=== PATIENT | male | born 1960 | race Caucasian/White ===

== ENCOUNTER 2020-07-27 06:10 | Observation (INO) | payer OTHER ==
[2020-07-24 10:56] LABS: BASOPHILS # (AUTO) 0.1 X10'3 (0-0.2); EOSINOPHILS % (AUTO) 0.5 % (0-6); HEMATOCRIT 45.3 % (42.0-52.0); HEMOGLOBIN 15.3 g/dl (14.0-17.9); LYMPHOCYTES # (AUTO) 1.8 X10'3 (1.1-4.8); LYMPHOCYTES % (AUTO) 25.7 % (21-51); MEAN CORPUSCULAR HEMOGLOBIN 28.3 PG (27.0-31.0); MEAN CORPUSCULAR HGB CONC 33.7 g/dL (33.0-36.5); MEAN CORPUSCULAR VOLUME 83.9 FL (78-98); MEAN PLATELET VOLUME 7.6 FL (7.4-10.4); MONOCYTES # (AUTO) 0.5 X10'3 (0-0.9); MONOCYTES % (AUTO) 7.3 % (2-12); NEUTROPHILS # (AUTO) 4.6 X10'3 (1.8-7.7); NEUTROPHILS % (AUTO) 65.5 % (42-75); PLATELET COUNT 234 X10'3 (140-440); RED CELL DISTRIBUTION WIDTH 13.3 % (11.5-14.5)
[2020-07-24 11:14] LABS: PARTIAL THROMBOPLASTIN TIME 26 SECONDS (22-32)
[2020-07-24 11:17] LABS: ALBUMIN 4.1 G/DL (3.4-5.0); ANION GAP 7 (8-16); BLOOD UREA NITROGEN 13 MG/DL (7-18); BUN/CREATININE RATIO 14.1 (5.4-32.0); CALCIUM 8.8 MG/DL (8.5-10.1); CHLORIDE 106 MMOL/L (99-107); CREATININE 0.92 MG/DL (0.60-1.10); GLUCOSE 116 MG/DL (70-104); POTASSIUM 3.8 MMOL/L (3.5-5.1); SODIUM 143 MMOL/L (135-145); TOTAL CARBON DIOXIDE 29.6 MMOL/L (24-32); eGFR 84 ML/MIN
[2020-07-27] VITALS (12 sets, daily range): BP systolic 118–191; BP diastolic 63–105
[~2020-07-27] VITALS: Ht 172.7 cm; Wt 96.5 kg
--- NOTE | 2020-07-27 06:15 | NUR ---
Patient arrived to unit.
[2020-07-27] MEDS ORDERED: diphenhydrAMINE 25mg capsule PO PRN (06:30)
[2020-07-27] MEDS ORDERED: LIDOcaine/PRILOcaine 5gm cream TP ONE (06:30)
[2020-07-27] MEDS ORDERED: LORazepam 0.5 MG tablet PO PRN (06:30)
[2020-07-27] MEDS ORDERED: ASPI-920 PO (06:50)
[2020-07-27] MEDS ORDERED: CLOP75TA15 PO (06:50)
[2020-07-27] MEDS ORDERED: ROSU10TA2 PO (06:50)
[2020-07-27] MEDS ORDERED: METO25TA6 PO (06:50)
[2020-07-27] MEDS ORDERED: verapamil 2.5 mg/ml inj IV ONE (07:11)
[2020-07-27] MEDS ORDERED: midazolam 2 mg/2 ml injection ONE (07:11)
[2020-07-27] MEDS ORDERED: fentaNYL/PF 50MCG/1 ML 2ML syringe ONE (07:11)
[2020-07-27] MEDS ORDERED: LIDOcaine 1% (10mg/ml)w/preservative injection 20ml MDV ONE (07:12)
[2020-07-27] MEDS ORDERED: iohexol 350 MG/ML 50ML vial IV ONE (07:12)
[2020-07-27] MEDS ORDERED: iohexol 350MG/ML 100ml bottle IV ONE ×3 (07:12→08:43)
[2020-07-27] MEDS ORDERED: nitroGLYCERIN-Tridil 50MG/D5W 250 ML IV ONE (07:12)
[2020-07-27] MEDS ORDERED: heparin 1,000 UNITS/NS 500ml 500 ML ONE ×3 (07:12→08:28)
[2020-07-27] MEDS ORDERED: heparin 1,000unit/ml 10ml vial 10 ML ONE (07:12)
[2020-07-27] MEDS: normal saline 1,000 ML IV SCH ×3 (07:23→23:05)
--- NOTE | 2020-07-27 07:30 | NUR ---
Pt prepped for heart cath, right radial and groin. Pre-medication given as ordered. Vic CABRAL from clinical laboratory aides teacher in to take patient at this time.
[2020-07-27] MEDS ORDERED: heparin 25,000 UNIT/250ml bag 250 ML IV ONE (08:06)
[2020-07-27] MEDS ORDERED: clopidogrel 300mg tablet ONE ×2 (08:57→08:58)
[2020-07-27] MEDS ORDERED: clopidogrel 75mg tablet ONE ×2 (09:01→09:03)
[2020-07-27] MEDS ORDERED: acetaminophen 325mg tablet PO PRN (09:45)
[2020-07-27] MEDS ORDERED: HYDROcodone/acetaminophen 10/325mg tab PO PRN (09:45)
[2020-07-27] MEDS ORDERED: HYDROcodone/acetaminophen 5mg/325mg tablet PO PRN (09:45)
[2020-07-27] MEDS ORDERED: hydrALAZINE 20mg/ml inj. IV ONE (09:50)
[2020-07-27] MEDS ORDERED: hydrALAZINE 20mg/ml inj. IV PRN (09:50)
--- NOTE | 2020-07-27 11:40 | NUR ---
Called Dr. Walker regarding Lisinopril. Orders to give a dose now and start in the morning.
[2020-07-27] MEDS ORDERED: lisinopril 10 MG tablet PO ONE (11:50)
--- NOTE | 2020-07-27 12:23 | NUR ---
Patient in short stay . I have received report from MISHA Amor and had the opportunity to ask questions and awaiting pt's arrival to PCU floor. .
--- NOTE | 2020-07-27 12:42 | NUR ---
Patient arrived from short stay. Ambulated self to bed with standby assistance. Alert and oriented to room. BLL, SRx2, CL within reach, non skid socks on. 2 RN skin check complete. MRSA swab collected and sent to lab. First set of vitals BP 146/79, HR 65, R 16, Temp 98.0 oral, 98 room air, pain 0/10.
--- NOTE | 2020-07-27 12:50 | NUR ---
Report given to Renée CABRAL on tele. Patient taken up to room 7336M. All belongings with patient up to the room. Patient's home medications taken to pharmacy.
--- NOTE | 2020-07-27 18:19 | NUR ---
Problems reprioritized. Patient report given, questions answered & plan of care reviewed with MISHA Rich. Pt sitting up in bed, resting comfortably at change of shift. All pt needs met at this time.
[2020-07-27] MEDS: metoprolol tartrate 25mg tablet PO SCH (20:31)
[2020-07-27] MEDS ORDERED: temazepam 15mg capsule PO PRN ×2 (22:40→22:45)
[2020-07-28] VITALS (9 sets, daily range): BP systolic 125–166; BP diastolic 58–99
[2020-07-28] MEDS ORDERED: nitroGLYCERIN-Tridil 50MG/D5W 250 ML IV ONE (05:58)
[2020-07-28] MEDS ORDERED: heparin 25,000 UNIT/250ml bag 250 ML IV ONE (05:58)
[2020-07-28] MEDS ORDERED: midazolam 2 mg/2 ml injection ONE (05:59)
[2020-07-28] MEDS ORDERED: iohexol 350MG/ML 100ml bottle IV ONE ×2 (05:59→07:10)
[2020-07-28] MEDS ORDERED: verapamil 2.5 mg/ml inj IV ONE (05:59)
[2020-07-28] MEDS ORDERED: LIDOcaine 1% (10mg/ml)w/preservative injection 20ml MDV ONE (05:59)
[2020-07-28] MEDS ORDERED: fentaNYL/PF 50MCG/1 ML 2ML syringe ONE (05:59)
[2020-07-28] MEDS ORDERED: heparin 1,000unit/ml 10ml vial 10 ML ONE (05:59)
[2020-07-28] MEDS ORDERED: LIDOcaine/PRILOcaine 5gm cream TP ONE (06:00)
--- NOTE | 2020-07-28 06:28 | NUR ---
Patient in room PCU 3015. I have received report from Layla CABRAL and had the opportunity to ask questions and assume patient care.
[2020-07-28] MEDS: normal saline 1,000 ML IV SCH (06:51)
[2020-07-28 07:23] LABS: BASOPHILS # (AUTO) 0.1 X10'3 (0-0.2); BASOPHILS % (AUTO) 0.7 % (0-1); EOSINOPHILS # (AUTO) 0.1 X10'3 (0-0.9); EOSINOPHILS % (AUTO) 0.7 % (0-6); HEMATOCRIT 42.9 % (42.0-52.0); HEMOGLOBIN 14.1 g/dl (14.0-17.9); LYMPHOCYTES # (AUTO) 1.7 X10'3 (1.1-4.8); LYMPHOCYTES % (AUTO) 21.3 % (21-51); MEAN CORPUSCULAR VOLUME 84.8 FL (78-98); MONOCYTES # (AUTO) 0.6 X10'3 (0-0.9); MONOCYTES % (AUTO) 7.7 % (2-12); NEUTROPHILS # (AUTO) 5.4 X10'3 (1.8-7.7); NEUTROPHILS % (AUTO) 69.6 % (42-75); PLATELET COUNT 215 X10'3 (140-440); RED BLOOD COUNT 5.05 X10'6 (4.70-6.10); RED CELL DISTRIBUTION WIDTH 13.7 % (11.5-14.5); WHITE BLOOD COUNT 7.8 X10'3 (4.5-11.0)
[2020-07-28 07:49] LABS: ALBUMIN 3.6 G/DL (3.4-5.0); ANION GAP 9 (8-16); BLOOD UREA NITROGEN 11 MG/DL (7-18); BUN/CREATININE RATIO 14.5 (5.4-32.0); CALCIUM 8.4 MG/DL (8.5-10.1); CHLORIDE 106 MMOL/L (99-107); CHOL/HDL RATIO 2.7 (0.00-4.99); CHOLESTEROL 112 MG/DL (0-200); CREATININE 0.76 MG/DL (0.60-1.10); GLUCOSE 99 MG/DL (70-104); HDL CHOLESTEROL 41 MG/DL (35-60); LDL CHOLESTEROL 56 MG/DL (50-100); POTASSIUM 3.5 MMOL/L (3.5-5.1); SODIUM 143 MMOL/L (135-145); TOTAL CARBON DIOXIDE 27.8 MMOL/L (24-32); TRIGLYCERIDES 152 MG/DL (20-135); eGFR > 90 ML/MIN
[2020-07-28] MEDS ORDERED: clopidogrel 300mg tablet ONE (07:50)
[2020-07-28] MEDS ORDERED: aspirin 81mg tablet.DR PO SCH (08:00)
[2020-07-28] MEDS ORDERED: atorvastatin 20mg tablet PO SCH (08:00)
[2020-07-28] MEDS ORDERED: lisinopril 10 MG tablet PO SCH (08:00)
[2020-07-28] MEDS: metoprolol tartrate 25mg tablet PO SCH (08:00)
[2020-07-28] MEDS ORDERED: clopidogrel 75mg tablet PO SCH ×2 (08:00)
[2020-07-28] MEDS ORDERED: pneumococcal 23-VAL P-sac vacc 25 mcg/0.5ml vial IMVAC ONE (10:00)
[2020-07-28] MEDS ORDERED: ROSU40TA PO (12:58)
[2020-07-28] MEDS ORDERED: CLOP75TA15 PO (12:58)
--- NOTE | 2020-07-28 14:42 | NUR ---
Patient discharged at [facility] home. RX faxed to [facility], packet reviewed prior to signing. All belongings sent home with patient including stent cares and heart cath after care. PIV removed, tele taken off, patient wheeled down by staff and left with via private vehicle.
== END 2020-07-28 14:30 | disposition home or self-care (01) ==
LOC: SSTAY O 06:10 → PCU 3S 13:00
PROVIDERS: ADMIT Internal Medicine Cardiovascular Disease; ATTEND Internal Medicine Cardiovascular Disease
DX: I25.119 Atherosclerotic heart disease of native coronary artery with unspecified angina pectoris (principal); I10 Essential (primary) hypertension; E78.5 Hyperlipidemia, unspecified; G47.33 Obstructive sleep apnea (adult) (pediatric); R73.03 Prediabetes; E66.3 Overweight; N40.0 Benign prostatic hyperplasia without lower urinary tract symptoms; F32.9 Major depressive disorder, single episode, unspecified; Z95.5 Presence of coronary angioplasty implant and graft; Z79.82 Long term (current) use of aspirin; Z79.02 Long term (current) use of antithrombotics/antiplatelets; Z79.899 Other long term (current) drug therapy
CPT/HCPCS: 36415; 76937; 80048; 80061; 85025; 85347; 85610; 85730; 93005; 93458; 96360; 96361; C1725; C1751; C1769; C1874; C1892; C1894; C9600; C9601; G0378; J1644; J2001; J2250; J3010; J7030; Q0163; Q9967; 99152; 99153; A4620; A5120; A6258; J3490

== ENCOUNTER 2023-10-02 07:36 | Day surgery (SDC) | payer OTHER ==
[2023-09-25 14:43] LABS: BASOPHILS # (AUTO) 0.1 X10'3 (0-0.2); BASOPHILS % (AUTO) 0.9 % (0-1); EOSINOPHILS % (AUTO) 0.5 % (0-6); LYMPHOCYTES # (AUTO) 1.7 X10'3 (1.1-4.8); LYMPHOCYTES % (AUTO) 21.5 % (21-51); MEAN CORPUSCULAR HEMOGLOBIN 28.6 PG (27.0-31.0); MEAN CORPUSCULAR HGB CONC 33.4 g/dL (33.0-36.5); MEAN CORPUSCULAR VOLUME 85.8 FL (78-98); MEAN PLATELET VOLUME 7.2 FL (7.4-10.4); MONOCYTES # (AUTO) 0.7 X10'3 (0-0.9); MONOCYTES % (AUTO) 8.9 % (2-12); NEUTROPHILS # (AUTO) 5.2 X10'3 (1.8-7.7); NEUTROPHILS % (AUTO) 68.2 % (42-75); PRE OP HEMATOCRIT 43.6 % (42.0-52.0); PRE OP HEMOGLOBIN 14.6 g/dL (14.0-17.9); PRE OP PLATELET COUNT 224 X10'3 (140-440); PRE OP WHITE BLOOD COUNT 7.7 10'3 (4.8-10.8); RED BLOOD COUNT 5.08 X10'6 (4.70-6.10); RED CELL DISTRIBUTION WIDTH 13.5 % (11.5-14.5)
[2023-09-25 15:08] LABS: ALBUMIN 3.7 G/DL (3.4-5.0); ALBUMIN/GLOBULIN RATIO 1.1 (1.1-1.5); ALKALINE PHOSPHATASE 90 IU/L (46-116); BLOOD UREA NITROGEN 16 MG/DL (7-18); BUN/CREATININE RATIO 15.4 (10.0-20.0); CALCIUM 8.5 MG/DL (8.5-10.1); CHLORIDE 103 MMOL/L (99-107); CREATININE 1.04 MG/DL (0.60-1.10); PRE OP ALT 40 U/L (30-65); PRE OP ANION GAP 6 (8-16); PRE OP AST 29 U/L (10-37); PRE OP BILIRUB, TOTAL 0.7 MG/DL (0.0-1.0); PRE OP GLUCOSE 103 MG/DL (70-104); PRE OP POTASSIUM 3.5 MMOL/L (3.4-5.1); PRE OP SODIUM 141 MMOL/L (135-145); TOTAL CARBON DIOXIDE 31.9 MMOL/L (24-32); TOTAL PROTEIN 7.1 G/DL (6.4-8.2); eGFR 72 ML/MIN
[2023-10-02] VITALS (9 sets, daily range): BP systolic 98–144; BP diastolic 61–79; PULSE 50–66; RESP 13–16; TEMP 97.8; O2SAT 96–99
[~2023-10-02] VITALS: Ht 172.7 cm; Wt 91.0 kg
[2023-10-02] MEDS: DOCUMENT DATE & TIME OF BETA-BLOCKER PO ONE (05:30)
[2023-10-02] MEDS: cefazolin 2gm/D5W 100mL 100 ML IV ONE (05:30)
[~2023-10-02 07:36] MED LIST: AMLO-708 PO; ASPI-920 PO; BUPIVAcaine/PF 2.5mg/ml (0.25%) 10ml vial ONE; CLOP75TA15 PO; LIDOcaine 2% (20mg/ml) 5ml vial ONE; LOP25T PO; ROSU40TA PO
[2023-10-02] MEDS ORDERED: CLOP75TA34 PO (08:28)
[2023-10-02] MEDS ORDERED: ROSU40TA22 PO (08:28)
[2023-10-02] MEDS: famotidine 20mg tablet PO ONE (08:41)
[2023-10-02] MEDS: ringers solution, lacted 1,000 ML IV SCH (08:41)
[2023-10-02] MEDS ORDERED: proCHLORperazine 10 MG/2 ml inj IV PRN (10:00)
[2023-10-02] MEDS ORDERED: morphine 2 MG/ML inj. syringe IV PRN (10:00)
[2023-10-02] MEDS ORDERED: ringers solution, lacted 1,000 ML IV SCH (10:00)
[2023-10-02] MEDS ORDERED: morphine 4 MG/ML inj SYRINge IV PRN (10:00)
[2023-10-02] MEDS ORDERED: meperidine/PF 25mg/ml syringe IV PRN ×3 (10:00)
[2023-10-02] MEDS ORDERED: ondansetron/PF 4mg/2ml inj IV PRN (10:00)
[2023-10-02] MEDS ORDERED: LIDOcaine 0.5% (5mg/ml) 50ml vial ONE (10:16)
[2023-10-02] MEDS ORDERED: fentaNYL/PF 50MCG/1 ML 2ML syringe ONE (10:18)
[2023-10-02] MEDS ORDERED: midazolam 1 mg/ML 2ml injection ONE (10:18)
[2023-10-02] MEDS ORDERED: propofol inj 20 ML IV ONE ×2 (10:20)
[2023-10-02] MEDS: BUPIVAcaine/PF 2.5mg/ml (0.25%) 10ml vial IJ ONE ×2 (10:54→11:05)
[2023-10-02] MEDS ORDERED: BUPIVAcaine/PF 2.5mg/ml (0.25%) 10ml vial ONE (11:05)
== END 2023-10-02 12:30 | disposition home or self-care (01) ==
LOC: PAS 07:36
PROVIDERS: ATTEND Orthopaedic Surgery Hand Surgery
DX: M18.12 Unilateral primary osteoarthritis of first carpometacarpal joint, left hand (principal); I10 Essential (primary) hypertension; Z87.891 Personal history of nicotine dependence; Z79.891 Long term (current) use of opiate analgesic; Z79.899 Other long term (current) drug therapy; Z96.653 Presence of artificial knee joint, bilateral; Z98.890 Other specified postprocedural states
CPT/HCPCS: 25447; 36415; 80053; 82948; 85025; 93005; A6222; J0690; J2250; J2704; J3010; J3490; J7030; J7120; Z7506; Z7512; A4215; A6449; A7000

== ENCOUNTER 2024-10-03 09:35 | Outpatient (CLI) | payer MEDICARE, OTHER ==
[~2024-10-03 09:35] MED LIST changes: -BUPIVAcaine/PF 2.5mg/ml (0.25%) 10ml vial ONE; -CLOP75TA15 PO; +CLOP75TA34 PO; -LIDOcaine 2% (20mg/ml) 5ml vial ONE; -ROSU40TA PO; +ROSU40TA89 PO
== END 2024-10-03 23:59 | disposition home or self-care (01) ==
LOC: MRI02 09:35
PROVIDERS: ATTEND Student in an Organized Health Care Education/Training Program
DX: M51.17 Intervertebral disc disorders with radiculopathy, lumbosacral region (principal); M54.50 Low back pain, unspecified; M47.27 Other spondylosis with radiculopathy, lumbosacral region; M48.07 Spinal stenosis, lumbosacral region
CPT/HCPCS: 72148